=== PATIENT | female | born 1975 | race Caucasian/White ===

== ENCOUNTER 2021-08-28 21:35 | Observation (INO) | payer OTHER ==
[2021-08-28] MEDS ORDERED: HYDROmorphone 1 MG/ML 1 ML SYRINGE IVP STA (22:00)
[2021-08-28] MEDS ORDERED: LORazepam 2 MG/ML INJ IV STA (22:44)
--- NOTE | 2021-08-28 22:47 | ED ---
Fall HPI - General Chief Complaint: Fall Stated Complaint: Fall Time Seen by Provider: 08/28/21 21:45 Source: patient, EMS Mode of arrival: EMS - History of Present Illness Initial Comments: 46 year-old female patient presents to the emergency department for evaluation of right ankle pain and deformity after a fall at home. States she was in the kitchen she went to turn, twisted her ankle, and fell. States she called ambulance because she saw the deformity and could not get up. She denies hitting her head or losing consciousness. Denies any neck or back pain. She did receive Fentanyl 100mg and Zofran 4mg prior to arrival. She states it is not helping. She denies previous injury to the ankle. Denies use of blood thinners. - Related Data Home Medications Medication Instructions Recorded Confirmed Biotin 5 mg PO DAILY 08/28/21 08/28/21 Cyanocobalamin (Vitamin B-12) 5,000 mcg PO DAILY 08/28/21 08/28/21 [Vitamin B12] Ibuprofen [Motrin Ib] 600 mg PO Q8H PRN 08/28/21 08/28/21 Multivitamins, Thera [Multivitamin 1 tab PO DAILY 08/28/21 08/28/21 (formulary)] Venlafaxine HCl [Effexor XR] 75 mg PO DAILY 08/28/21 08/28/21 oxyCODONE-APAP 5-325MG [Percocet 1 tab PO DAILY PRN 08/28/21 08/28/21 5-325 mg] Allergies Allergy/AdvReac Type Severity Reaction Status Date / Time No Known Allergies Allergy Verified 08/28/21 22:41 Review of Systems ROS Statement: Those systems with pertinent positive or pertinent negative responses have been documented in the HPI. ROS Other: All systems not noted in ROS Statement are negative. Past Medical History Past Medical History: No Reported History History of Any Multi-Drug Resistant Organisms: None Reported Past Psychological History: Depression Smoking Status: Current some day smoker Past Alcohol Use History: Occasional Past Drug Use History: Marijuana General Exam General appearance: alert, in no apparent distress, other (This is a well- developed, well-nourished adult female in distress related to pain.) ENT exam: Present: normal exam, normal oropharynx, mucous membranes moist Neck exam: Present: normal inspection, full ROM, other (Nontender, no step-off, no deformity to firm midline palpation of the posterior cervical spine. Full range of motion without pain or limitation.). Absent: tenderness, meningismus, lymphadenopathy Respiratory exam: Present: normal lung sounds bilaterally. Absent: respiratory distress, wheezes, rales, rhonchi, stridor Cardiovascular Exam: Present: normal rhythm, tachycardia, normal heart sounds. Absent: systolic murmur, diastolic murmur, rubs, gallop, clicks GI/Abdominal exam: Present: soft, normal bowel sounds. Absent: distended, tenderness, guarding, rebound, rigid Extremities exam: Present: full ROM, tenderness (Proximal tib-fib, right ankle, right foot), normal capillary refill, other (There is ankle deformity noted on the right. Proximal tib-fib tenderness. Soft tissue swelling noted. Skin is otherwise pink, warm, dry. Cap refill less than 3 seconds. Pedal and posttibial pulses are). Absent: normal inspection, pedal edema, joint swelling, calf tenderness Neurological exam: Present: alert, oriented X3, CN II-XII intact Psychiatric exam: Present: normal affect, normal mood Skin exam: Present: warm, dry, intact, normal color. Absent: rash Course Vital Signs 08/28/21 08/29/21 08/29/21 21:40 00:05 00:10 Pulse Rate 109 H 115 H 101 H Respiratory 20 22 20 Rate Blood Pressure 123/83 114/74 124/55 O2 Sat by Pulse 99 97 95 Oximetry 08/29/21 08/29/21 08/29/21 00:13 00:17 00:30 Pulse Rate 101 H 114 H 101 H Respiratory 18 20 20 Rate Blood Pressure 110/62 110/62 110/84 O2 Sat by Pulse 98 97 96 Oximetry 08/29/21 08/29/21 00:45 01:00 Pulse Rate 102 H 96 Respiratory 20 20 Rate Blood Pressure 107/84 114/78 O2 Sat by Pulse 96 96 Oximetry Procedures - Orthopedic Joint Reduction Joint #1 Consent Obtained: verbal consent Side: right Analgesia: procedural sedation Technique Used: traction/counter-traction Post-Reduction Neuro Exam: intact Post-Reduction Vascular Exam: intact Post Reduction X-Ray Obtained: Yes Post Reduction X-Ray Results: other (improved alignmen) Splint Applied: Yes Patient Tolerated Procedure: well, no complications Additional Comments: Performed by Dr. Christopher Dawn - Orthopedic Splinting/Casting Injury #1 Side: right Lower Extremity Injury Location: short leg, ankle Lower Extremity Immobilizer: posterior splint, stirrup splint, Tr wrap, synthetic pre-padded splint Medical Decision Making - Medical Decision Making 46-year-old female patient presents to the emergency department today for evaluation of right ankle and foot pain after an injury. Physical examination did reveal soft tissue swelling and deformity of the right ankle. Neurovascular status was intact. X-rays were obtained and shows comminuted fracture of the distal shaft of the fibula. There is bimalleolar fracture. Second metatarsal fracture. Talus was placed. Patient was given procedural sedation and the joint was reduced. Splint was applied. She tolerated the procedure well. Postreduction x-ray did show satisfactory alignment. She'll be admitted to the hospital for surgical procedure tomorrow. She is nothing by mouth. She is agreeable with this plan. My attending is Dr. Dawn. - Lab Data Result diagrams: 08/29/21 01:07 08/29/21 01:07 Lab Results 08/29/21 08/29/21 08/29/21 Range/Units 01:07 01:07 01:07 WBC 10.5 (3.8-10.6) k/uL RBC 4.87 (3.80-5.40) m/uL Hgb 15.1 (11.4-16.0) gm/dL Hct 45.8 (34.0-46.0) % MCV 94.0 (80.0-100.0) fL MCH 31.1 (25.0-35.0) pg MCHC 33.1 (31.0-37.0) g/dL RDW 12.1 (11.5-15.5) % Plt Count 281 (150-450) k/uL MPV 7.8 Neutrophils % 70 % Lymphocytes % 25 % Monocytes % 4 % Eosinophils % 1 % Basophils % 0 % Neutrophils # 7.3 (1.3-7.7) k/uL Lymphocytes # 2.6 (1.0-4.8) k/uL Monocytes # 0.4 (0-1.0) k/uL Eosinophils # 0.1 (0-0.7) k/uL Basophils # 0.0 (0-0.2) k/uL PT 10.0 (9.0-12.0) sec INR 0.9 (<1.2) APTT 25.8 (22.0-30.0) sec Sodium 141 (137-145) mmol/L Potassium 4.4 (3.5-5.1) mmol/L Chloride 106 (98-107) mmol/L Carbon Dioxide 24 (22-30) mmol/L Anion Gap 11 mmol/L BUN 12 (7-17) mg/dL Creatinine 0.71 (0.52-1.04) mg/dL Est GFR (CKD-EPI)AfAm >90 (>60 ml/min/1.73 sqM) Est GFR (CKD-EPI)NonAf >90 (>60 ml/min/1.73 sqM) Glucose 102 H (74-99) mg/dL Calcium 9.2 (8.4-10.2) mg/dL Total Bilirubin 0.3 (0.2-1.3) mg/dL AST 20 (14-36) U/L ALT 13 (4-34) U/L Alkaline Phosphatase 67 (38-126) U/L Total Protein 7.6 (6.3-8.2) g/dL Albumin 4.6 (3.5-5.0) g/dL Coronavirus (PCR) (Not Detectd) 08/29/21 Range/Units 01:07 WBC (3.8-10.6) k/uL RBC (3.80-5.40) m/uL Hgb (11.4-16.0) gm/dL Hct (34.0-46.0) % MCV (80.0-100.0) fL MCH (25.0-35.0) pg MCHC (31.0-37.0) g/dL RDW (11.5-15.5) % Plt Count (150-450) k/uL MPV Neutrophils % % Lymphocytes % % Monocytes % % Eosinophils % % Basophils % % Neutrophils # (1.3-7.7) k/uL Lymphocytes # (1.0-4.8) k/uL Monocytes # (0-1.0) k/uL Eosinophils # (0-0.7) k/uL Basophils # (0-0.2) k/uL PT (9.0-12.0) sec INR (<1.2) APTT (22.0-30.0) sec Sodium (137-145) mmol/L Potassium (3.5-5.1) mmol/L Chloride (98-107) mmol/L Carbon Dioxide (22-30) mmol/L Anion Gap mmol/L BUN (7-17) mg/dL Creatinine (0.52-1.04) mg/dL Est GFR (CKD-EPI)AfAm (>60 ml/min/1.73 sqM) Est GFR (CKD-EPI)NonAf (>60 ml/min/1.73 sqM) Glucose (74-99) mg/dL Calcium (8.4-10.2) mg/dL Total Bilirubin (0.2-1.3) mg/dL AST (14-36) U/L ALT (4-34) U/L Alkaline Phosphatase (38-126) U/L Total Protein (6.3-8.2) g/dL Albumin (3.5-5.0) g/dL Coronavirus (PCR) Not Detected (Not Detectd) - Radiology Data Radiology results: report reviewed, image reviewed 6 views of the right tib-fib are obtained. Report was reviewed in its entirety. Impression by Dr. Mehta shows fractures of the posterior malleolus and the medial malleolus with lateral partial dislocation of the talus. There is displaced oblique fracture through the midshaft of the fibula. 2 views of the right ankle are obtained. Report is reviewed in its entirety. Impression by Dr. Mehta shows multiple fractures as above. There is lateral mild displacement of the talus. Chest x-ray was obtained. Report reviewed in its entirety. Impression by Dr. Mehta shows no active cardiopulmonary disease. Normal heart. 2 views of the right foot are obtained. Report reviewed in its entirety. Impression by Dr. Mehta shows nondisplaced second metatarsal fracture. 2 views of the right ankle are obtained. Report was reviewed in its entirety. Impression by Dr. Mehta shows satisfactory reduction of the fractures. Disposition Clinical Impression: Bimalleolar fracture of right ankle, Right fibular fracture, Fracture of second metatarsal bone of right foot Disposition: ADMITTED IP TO THIS [facility] Condition: Serious Decision to Admit Reason: Admit from EC Decision Date: 08/29/21 Decision Time: 00:19
--- NOTE | 2021-08-28 22:47 | XR ---
EXAMINATION TYPE: XR tibia fibula RT DATE OF EXAM: 08/28/2021 COMPARISON: NONE HISTORY: Fall. Pain. TECHNIQUE: 6 views FINDINGS: Knee joint is intact. There is oblique fracture of the mid shaft of the fibula with some an terior angulation. There is transverse fracture through the medial malleolus. There is separation of the distal tibia and fibula. There is lateral displacement of the talus. There is evidence of a chip fracture of the posterior malleolus. IMPRESSION: There is fractures of the posterior malleolus and the medial malleolus with lateral parti al dislocation of the talus. There is displaced oblique fracture through the midshaft of the fibula.
--- NOTE | 2021-08-28 22:48 | XR ---
EXAMINATION TYPE: XR ankle limited RT DATE OF EXAM: 08/28/2021 COMPARISON: NONE HISTORY: Pain TECHNIQUE: 2 views FINDINGS: There is a nondisplaced vertical fracture through the posterior malleolus. There is transve rse fracture through the medial malleolus with separation of the fragments 9 mm. There is 6 mm latera l displacement of the talus. The talus is intact. Calcaneus is intact. There is oblique fracture betw een middle and distal thirds of the right fibula with anterior mild angulation at the fracture site. IMPRESSION: Multiple fractures as above. There is a lateral mild displacement of the talus.
--- NOTE | 2021-08-28 22:49 | XR ---
EXAMINATION TYPE: XR chest 1V DATE OF EXAM: 08/28/2021 COMPARISON: NONE HISTORY: Pain TECHNIQUE: Single view FINDINGS: Heart and mediastinum are normal. Lungs are clear. Diaphragm is normal. Bony thorax is inta ct. There is cervical spine fusion surgery. IMPRESSION: No active cardiopulmonary disease. Normal heart.
--- NOTE | 2021-08-28 22:51 | XR ---
EXAMINATION TYPE: XR foot limited RT DATE OF EXAM: 08/28/2021 COMPARISON: NONE HISTORY: Foot pain TECHNIQUE: 2 views FINDINGS: There is transverse fracture across the base of the second metatarsal. There is no displace ment. The toes are intact. Bones of the midfoot appear intact. There is fracture at the ankle describ ed on the ankle x-ray report. IMPRESSION: Nondisplaced second metatarsal fracture.
[2021-08-28] MEDS ORDERED: PROPOFOL 10 MG/ML 20 ML VIAL IV STA (23:12)
[2021-08-29] MEDS ORDERED: NALOXONE 0.4 MG/ML 1 ML VIAL IV PRN (00:15)
[2021-08-29] MEDS ORDERED: LORazepam 2 MG/ML INJ IV PRN (00:15)
[2021-08-29] MEDS ORDERED: SODIUM CHLORIDE 0.9% 1,000 ML IV SCH (00:15)
--- NOTE | 2021-08-29 00:36 | XR ---
EXAMINATION TYPE: XR ankle limited RT DATE OF EXAM: 08/29/2021 COMPARISON: Today HISTORY: Reduction TECHNIQUE: 2 views FINDINGS: There is fracture of the lateral and posterior malleolus. Fragments are in reasonable anato steve position. Ankle mortise is anatomic. There is oblique fracture of the fibula comminution in fairl y good apposition and alignment of the fragments. IMPRESSION: Satisfactory reduction of the fractures.
[2021-08-29 01:27] LABS: Basophils % (A) 0 %; Eosinophils # (A) 0.1 k/uL (0-0.7); Eosinophils % (A) 1 %; HCT 45.8 % (34.0-46.0); HGB 15.1 gm/dL (11.4-16.0); Lymphocytes # (A) 2.6 k/uL (1.0-4.8); Lymphocytes % (A) 25 %; MCH 31.1 pg (25.0-35.0); MCHC 33.1 g/dL (31.0-37.0); Mean Platelet Volume 7.8; Monocytes # (A) 0.4 k/uL (0-1.0); Monocytes % (A) 4 %; Neutrophils # (A) 7.3 k/uL (1.3-7.7); Neutrophils % (A) 70 %; Platelet Count 281 k/uL (150-450); RBC 4.87 m/uL (3.80-5.40); RDW 12.1 % (11.5-15.5); WBC 10.5 k/uL (3.8-10.6)
[2021-08-29 01:37] LABS: ALT 13 U/L (4-34); AST 20 U/L (14-36); African American GFR (CKD) >90 (>60 ml/min/1.73 sqM); Albumin 4.6 g/dL (3.5-5.0); Alkaline Phosphatase 67 U/L (38-126); Anion Gap 11 mmol/L; Blood Urea Nitrogen 12 mg/dL (7-17); Calcium 9.2 mg/dL (8.4-10.2); Carbon Dioxide 24 mmol/L (22-30); Chloride 106 mmol/L (98-107); Glucose 102 mg/dL (74-99); Non-African American GFR(CKD) >90 (>60 ml/min/1.73 sqM); Potassium 4.4 mmol/L (3.5-5.1); Sodium 141 mmol/L (137-145); Total Bilirubin 0.3 mg/dL (0.2-1.3); Total Protein 7.6 g/dL (6.3-8.2)
[2021-08-29] MEDS ORDERED: ACETAMINOPHEN TAB 500 MG TAB PO STA (01:37)
[2021-08-29 01:38] LABS: INR 0.9 (<1.2); Partial Thromboplastin Time 25.8 sec (22.0-30.0)
[2021-08-29] MEDS: ONDANSETRON 4 MG/2 ML VIAL IVP PRN ×2 (01:48→07:46)
[2021-08-29] MEDS: HYDROmorphone 1 MG/ML 1 ML SYRINGE IVP PRN ×4 (04:05→17:44)
--- NOTE | 2021-08-29 09:34 | CT ---
EXAMINATION TYPE: CT foot RT wo con DATE OF EXAM: 08/29/2021 COMPARISON: Right ankle 08/29/2021, right foot 08/28/2021 HISTORY: Fracture of foot and ankle CT DLP: 109.8 mGycm Automated exposure control for dose reduction was used. Helical imaging obtained through the right fo ot, 3-dimensional reconstructions performed FINDINGS: Please identify complex fracture through the fibula is again noted and is fairly well reduced, some m inimal displacement is noted at the distal aspect of the fracture along the diaphysis, axial image #2 1. Complex fracture noted to the distal tibia extending into the joint, comminuted fragments show esa e minimal displacement at the posterior malleolus, medial malleolus also show some displacement at it s fracture site. Some mild there is some subluxation at the distal tibiofibular joint, widening of th e tibiotalar joint laterally The proximal second metatarsal shows a nondisplaced fracture, sagittal image 32, coronal image #27. N o evident dislocation, alignment maintained. Soft swelling is noted. There is an overlying splint. IMPRESSION: MULTIPLE FRACTURES ABOVE, SOFT TISSUE INJURY DESCRIBED.
--- NOTE | 2021-08-29 10:50 | P.HPOR ---
History of Present Illness H&P Date: 08/29/21 Chief Complaint: Right ankle fracture Patient is a 46-year-old female who presented to [facility] last night for evaluation of a right ankle injury. Apparently the patient was in her kitchen when she twisted around and felt a pop in her ankle and she immediately fell to the ground. She was unable to bear weight after the injury. She was brought to [facility] for further evaluation. There was obvious deformity present in the right ankle at the time of the injury. Upon arrival to the hospital, imaging and lab tests are done. Images demonstrated multiple fractures of the right lower extremity, this to include a comminuted and displaced right fibular shaft fracture, a medial malleolus fracture, syndesmotic disruption with obvious ankle deformity, and a second metatarsal fracture on the right side. I was contacted by the emergency room staff, I was able to review the images and discussed the case with my attending Dr. Vilchis. Patient was admitted under orthopedic care with plan for surgical intervention. Internal medicine was placed on for management. I did discuss the ER staff proper splinting and also reduction of the ankle to help hold better alignment. Alignment and postreduction films were done under sedation in the ER by the emergency room staff. Computed tomography scan was also ordered of the foot/ankle for further evaluation of the fracture pattern. Patient was made nothing by mouth last night. Patient was evaluated today at bedside, she is resting comfortably. She's having significant discomfort in the right ankle. She does take high-dose narcotics from a previous surgery she's been on these for many years, this medication has been restarted. We have adjusted the IV pain medication also. Patient has no other orthopedic complaints at this time. She denies any previous surgery to the right lower extremity. She does have a history of a previous cervical spine surgery that was done in [place] many years ago. currently patient denies any headaches, lightheadedness, chest pain, shortness of breath, nausea vomiting. Review of Systems Constitutional: Reports as per HPI Past Medical History Past Medical History: No Reported History History of Any Multi-Drug Resistant Organisms: None Reported Past Surgical History: Back Surgery Additional Past Surgical History / Comment(s): C2-7 sx Past Anesthesia/Blood Transfusion Reactions: No Reported Reaction Past Psychological History: Anxiety, Depression Additional Psychological History / Comment(s): pt states she has ativan at home but has not needed to take it for a panic attack for a few weeks at least Smoking Status: Current some day smoker Past Alcohol Use History: Occasional Past Drug Use History: Marijuana Additional Drug Use History / Comment(s): pt states she did have a "lick" of weed butter last night 08/28/21 - Past Family History Mother Family Medical History: Diabetes Mellitus Medications and Allergies Home Medications Medication Instructions Recorded Confirmed Type Biotin 5 mg PO DAILY 08/28/21 08/28/21 History Cyanocobalamin (Vitamin B-12) 5,000 mcg PO DAILY 08/28/21 08/28/21 History [Vitamin B12] Ibuprofen [Motrin Ib] 600 mg PO Q8H PRN 08/28/21 08/28/21 History Multivitamins, Thera [Multivitamin 1 tab PO DAILY 08/28/21 08/28/21 History (formulary)] Venlafaxine HCl [Effexor XR] 75 mg PO DAILY 08/28/21 08/28/21 History oxyCODONE-APAP 5-325MG [Percocet 1 tab PO DAILY PRN 08/28/21 08/28/21 History 5-325 mg] Allergies Allergy/AdvReac Type Severity Reaction Status Date / Time No Known Allergies Allergy Verified 08/28/21 22:41 Physical Examination Right lower extremity: Posterior splint with lateral stirrups are present with Tr bandage fixation No significant ecchymosis or soft tissue swelling is appreciated the foot/toes Patient is able wiggle the toes minimal difficulty Sensation to light touch both proximal distal splint are intact. She demonstrates no obvious tenderness of the proximal femur or knee Logroll maneuver of the lower extremity reproduces no groin pain Skin is warm to touch, cap refills less than 3 seconds Results - Labs Labs: Abnormal Lab Results - Last 24 Hours (Table) 08/29/21 Range/Units 01:07 Glucose 102 H (74-99) mg/dL H & H 08/29/21 Range/Units 01:07 Hgb 15.1 (11.4-16.0) gm/dL Hct 45.8 (34.0-46.0) % Coagulation 08/29/21 Range/Units 01:07 INR 0.9 (<1.2) Result Diagrams: 08/29/21 01:07 08/29/21 01:07 - Diagnostic results Ankle/Foot x-ray: report reviewed, image reviewed (X-ray images and report werereviewed of the right lower extremity, please see plan section for descr iption of x-ray findings) Assessment and Plan Assessment: Displaced comminuted right midshaft fibular fracture Displaced right medial malleolus fracture Syndesmotic ligament disruption right lower extremity Nondisplaced right second metatarsal fracture Status post fall from standing Plan: Dr. Vilchis was available today to discuss treatment options with the patient. We would like to proceed with surgical intervention, more specifically an open reduction internal fixation of the right ankle, this including syndesmotic ligament fixation. Risks and benefits of the procedure were discussed the patient, this to include but not exclude blood loss, infection, neurovascular injury, development blood clots, and adequate healing of bone, pain and stiffness, need for subsequent surgery. Patient is in good understanding would like to proceed. Obtain consent Continue nothing by mouth diet Computed tomography scan of the foot/ankle was ordered to further evaluate fracture pattern Pain control, home dose of Percocet has been restarted along with IV Dilaudid as needed. The long discussion regarding pain control patient today and I would likely be difficult due to the long-term effects of her being on narcotics. GI and DVT prophylaxis, we'll plan for discharge on oral anticoagulant versus subcu medication Medical recommendations Nonweightbearing lower extremity at this time Further recommendations to follow Time with Patient: Less than 30
[2021-08-29] MEDS ORDERED: IV FLUID CONTINUATION 800 ML IV ONE (12:45)
[2021-08-29] MEDS ORDERED: DEXAMETHASONE SOD PHOSPHATE 4 MG/ML 1 ML VIAL IVP ONE (13:05)
[2021-08-29] MEDS ORDERED: ONDANSETRON 4 MG/2 ML VIAL IVP ONE (13:05)
[2021-08-29] MEDS ORDERED: MIDAZOLAM 2 MG/2 ML VIAL IVP ONE ×2 (13:09→13:16)
[2021-08-29] MEDS ORDERED: fentaNYL (PF) 50 MCG/ML 2 ML AMP IVP ONE (13:09)
--- NOTE | 2021-08-29 13:12 | P.HPIM ---
History of Present Illness H&P Date: 08/29/21 Chief Complaint: ankle pain 46-year-old female with history of asthma and chronic neck pain status post surgery on chronic high-dose narcotics who presented to [facility] last night for evaluation of a right ankle injury. Apparently the patient was in her kitchen when she twisted around and felt a pop in her ankle and she immediately fell to the ground. She was unable to bear weight after the injury. Had severe pain in the right ankle and lower leg. Currently patient denies any headaches, lightheadedness, chest pain, shortness of breath, nausea vomiting. Prior to the fracture patient was able to walk without difficulties. No exertional shortness of breath or chest pain with walking. Upon arrival lab tests done in the Er were unremarkable. Images demonstrated multiple fractures of the right lower extremity, this to include a comminuted and displaced right fibular shaft fracture, a medial malleolus fracture, syndesmotic disruption with obvious ankle deformity, and a second metatarsal fracture on the right side. Patient was admitted to orthopedic surgery service and medicine was consulted for surgical clearance. Review of Systems Complete review of system performed, pertinent positives per HPI, otherwise negative. Past Medical History Past Medical History: No Reported History History of Any Multi-Drug Resistant Organisms: None Reported Past Surgical History: Back Surgery Additional Past Surgical History / Comment(s): C2-7 sx Past Anesthesia/Blood Transfusion Reactions: No Reported Reaction Past Psychological History: Anxiety, Depression Additional Psychological History / Comment(s): pt states she has ativan at home but has not needed to take it for a panic attack for a few weeks at least Smoking Status: Current some day smoker Past Alcohol Use History: Occasional Past Drug Use History: Marijuana Additional Drug Use History / Comment(s): pt states she did have a "lick" of weed butter last night 08/28/21 - Past Family History Mother Family Medical History: Diabetes Mellitus Medications and Allergies Home Medications Medication Instructions Recorded Confirmed Type Biotin 5 mg PO DAILY 08/28/21 08/28/21 History Cyanocobalamin (Vitamin B-12) 5,000 mcg PO DAILY 08/28/21 08/28/21 History [Vitamin B12] Ibuprofen [Motrin Ib] 600 mg PO Q8H PRN 08/28/21 08/28/21 History Multivitamins, Thera [Multivitamin 1 tab PO DAILY 08/28/21 08/28/21 History (formulary)] Venlafaxine HCl [Effexor XR] 75 mg PO DAILY 08/28/21 08/28/21 History oxyCODONE-APAP 5-325MG [Percocet 1 tab PO DAILY PRN 08/28/21 08/28/21 History 5-325 mg] Allergies Allergy/AdvReac Type Severity Reaction Status Date / Time No Known Allergies Allergy Verified 08/29/21 12:57 Physical Exam Vitals: Vital Signs Temp Pulse Pulse Resp BP BP Pulse Ox 08/29/21 12:47 97.7 F 92 20 103/74 97 08/29/21 08:00 86 16 08/29/21 07:00 98.3 F 86 16 101/69 95 08/29/21 04:00 89 18 95/55 97 08/29/21 01:00 96 20 114/78 96 08/29/21 00:45 102 H 20 107/84 96 08/29/21 00:30 101 H 20 110/84 96 08/29/21 00:17 114 H 20 110/62 97 08/29/21 00:13 101 H 18 110/62 98 08/29/21 00:10 101 H 20 124/55 95 08/29/21 00:05 115 H 22 114/74 97 08/28/21 21:40 109 H 20 123/83 99 Intake and Output 08/28/21 08/29/21 08/29/21 22:59 06:59 14:59 Other: Weight 99.79 kg 99.79 kg Constitutional: No acute distress, conversant, pleasant Eyes:Anicteric sclerae, moist conjunctiva, no lid-lag, PERRLA, ENMT: Oropharynx clear, no erythema, exudates Neck: Supple, FROM, no masses, or JVD, No carotid bruits, No thyromegaly Lungs: Clear to auscultation, Clear to percussion, Normal respiratory effort, no accessory muscle use Cardiovascular: Heart regular in rate and rhythm, No murmurs, gallops, or rubs, No peripheral edema Abdominal: Soft, Nontender, no guarding, rebound or rigidity, Normoactive bowel sounds, No hepatomegaly, No splenomegaly, No palpable mass Skin: Normal temperature, tone, texture, turgor, no induration, No subcutaneous nodules, No rash, lesions, No ulcers Extremities: Right lower extremity dressing applied, No digital cyanosis, No clubbing, Pedal pulses intact and symmetrical, Radial pulses intact and symmetrical, No calf tenderness Psychiatric: Alert and oriented to person, place and time, appropriate affect, intact judgement Neuro: Muscles Strength 5/5 in all 4 extremities, Sensation to light touch grossly present throughout, Cranial nerves II-XII grossly intact, no focal sens ory deficits Results CBC & Chem 7: 08/29/21 01:07 08/29/21 01:07 Labs: Abnormal Lab Results - Last 24 Hours (Table) 08/29/21 Range/Units 01:07 Glucose 102 H (74-99) mg/dL Thrombosis Risk Factor Assmnt - Choose All That Apply Each Factor Represents 1 point: Age 41-60 years, Obesity (BMI >25) Each Risk Factor Represents 2 Points: Major surgery Each Risk Factor Represents 5 Points: Hip, pelvis, or leg fracture (< 1 month) Thrombosis Risk Factor Assessment Total Risk Factor Score: 9 Thrombosis Risk Factor Assessment Level: High Risk Assessment and Plan Plan: Preoperative clearance: Patient must be low risk for the upcoming surgery as she is normally ambulatory prior to this happening. Chest x-ray reviewed, no need for further investigations. Right ankle fracture Per surgical service Chronic Asthma Depression Stable Resume meds DVT prophylaxis Start once okay with surgery Anticipated discharge: 1-2 days Disposition: Likely home
[2021-08-29] MEDS ORDERED: fentaNYL (PF) 50 MCG/ML 5 ML AMP IVP ONE (13:16)
[2021-08-29] MEDS ORDERED: KETAMINE 10 MG/ML 20 ML VIAL ONE (14:27)
[2021-08-29] MEDS ORDERED: ROCURONIUM 10 MG/ML (5 ML VIAL) IV ONE (14:27)
[2021-08-29] MEDS ORDERED: ROPIVACAINE 5 MG/ML 30 ML VIAL ONE (14:27)
[2021-08-29] MEDS ORDERED: HYDROmorphone (PF) 1 MG/ML ONE (14:27)
[2021-08-29] MEDS ORDERED: PROPOFOL 10 MG/ML 20 ML VIAL IV ONE (14:27)
[2021-08-29] MEDS ORDERED: SUCCINYLCHOLINE CHLORIDE 100 MG/5 ML SYR IV ONE (14:27)
[2021-08-29] MEDS ORDERED: GLYCOPYRROLATE 0.2 MG/ML 2 ML VIAL ONE (14:27)
[2021-08-29] MEDS ORDERED: MIDAZOLAM 2 MG/2 ML VIAL ONE (14:27)
[2021-08-29] MEDS ORDERED: LIDOCAINE 1% INJ 10MG/ML (20 ML MDV) ONE (14:27)
[2021-08-29] MEDS ORDERED: fentaNYL (PF) 50 MCG/ML 2 ML AMP ONE (14:27)
[2021-08-29] MEDS ORDERED: NEOSTIGMINE 1 MG/ML 10 ML VIAL ONE (14:27)
[2021-08-29] MEDS ORDERED: ceFAZolin 1,000 MG VIAL IVPB ONE (14:32)
[2021-08-29] MEDS ORDERED: ceFAZolin 1,000 MG in SODIUM CHLORIDE 0.9% 1,000 ML IRRIGATION ONE (15:01)
--- NOTE | 2021-08-29 15:31 | P.ANPRN ---
Procedure Note - Anesthesia - Nerve Block Performed Right Popliteal Single Time Out Performed: Yes (130) Date of Procedure: 08/29/21 Procedure Start Time: 13:09 Procedure Stop Time: 13:13 Location of Patient: PreOp Indication: Acute Post-Operative Pain, Requested by Surgeon Specifically requested for management of pain by : Ulysses Vilchis Sedation Type: Sedate with meaningful contact maintained Preparation: Sterile Prep Position: Left Lateral Catheter: None Needle Types: Pajunk Needle Gauge: 21 Ultrasound used to visualize needle placement: Yes Ultrasound used to observe medication spread: Yes Injectate: 0.5% Ropivacaine (see comment for volume) (20cc) Blood Aspirated: No Pain Paresthesia on Injection Noted: No Resistance on Injection: Normal Image Stored and Saved: Yes Events: Uneventful and Well Tolerated Right Adductor Canal Single Time Out Performed: Yes (130) Date of Procedure: 08/29/21 Procedure Start Time: 13:14 Procedure Stop Time: 13:18 Location of Patient: PreOp Indication: Acute Post-Operative Pain, Requested by Surgeon Specifically requested for management of pain by DrCarlos: Ulysses Vilchis Sedation Type: Sedate with meaningful contact maintained Preparation: Sterile Prep Position: Supine Catheter: None Needle Types: Pajunk Needle Gauge: 21 Ultrasound used to visualize needle placement: Yes Ultrasound used to observe medication spread: Yes Injectate: 0.5% Ropivacaine (see comment for volume) (20cc) Blood Aspirated: No Pain Paresthesia on Injection Noted: No Resistance on Injection: Normal Image Stored and Saved: Yes Events: Uneventful and Well Tolerated
[2021-08-29] MEDS ORDERED: LACTATED RINGERS 1,000 ML IV ONE (15:45)
--- NOTE | 2021-08-29 16:29 | FL ---
EXAMINATION TYPE: FL guidance operating room, XR ankle complete RT DATE OF EXAM: 08/29/2021 CLINICAL HISTORY: Right ankle fracture. TECHNIQUE: Fluoroscopy. Complete intraoperative views right ankle. COMPARISON: Right ankle x-ray earlier today.. FINDINGS: Fluoroscopic guidance was provided during open reduction internal fixation procedure perfo rmed by Dr. Vilchis. A total of 63 seconds of fluoroscopic time was utilized during the procedure and 8 spot images was acquired. Intraoperative images acquired show placement of 2 fixating screws through displaced medial malleolus fracture and lateral fixating plate with 2 radiolucent screws through the distal tibia and fibula di stal to the oblique fibular diaphysis fracture. IMPRESSION: As Above.
[2021-08-29] MEDS ORDERED: HYDROmorphone 0.5 MG/0.5 ML SYRINGE IVP ONE (16:41)
--- NOTE | 2021-08-29 16:47 | P.OP ---
Date of Procedure: 08/29/21 Preoperative Diagnosis: 1. Rt ankle medial malleolar fracture with high fibular fracture and small posterior malleolar fracture. Trimalleolar fracture dislocation 2. Rt ankle Maisonneuve fracture 3. s/p FFS Postoperative Diagnosis: 1. Rt ankle medial malleolar fracture with high fibular fracture and small posterior malleolar fracture. Trimalleolar fracture dislocation 2. Rt ankle Maisonneuve fracture 3. s/p FFS Procedure(s) Performed: 1. Right ankle ORIF medial malleolus 2. Rt ankle syndesmosis reduction with tight rope stabilization 3. Bivalved short leg cast placement 4. Intraoperative interpretation of flouroscopic images <1 hr Implants: 4.0 cannulated screws x2 x2 arthrex tight rope syndesmotic construct. Anesthesia: MAC, regional Surgeon: Ulysses Vilchis Debarker Operator #1: Alex Newton (Was present and necessary due to the complexity ofthe case) Estimated Blood Loss (ml): 50 IV fluids (ml): 500 Urine output (ml): 0 Pathology: none sent Condition: stable Disposition: PACU Indications for Procedure: 46-year-old female presented to the emergency department after a twist and fall injury at home with complaints of right ankle pain. She is found have a right ankle bimalleolar fracture dislocation with Maisonneuve type syndesmotic injury. She was splinted by the emergency department and admitted to the hospital for surgical fixation. We discussed preoperatively all the different options for treatment including nonoperative and operative treatment. Risks and elected for operative treatment and I agree. She has remained neurovascularly intact. Compartments are soft and compressible. She is ready and willing proceed with the procedure Description of Procedure: The patient was seen and examined in the preoperative area. All preoperative protocols were followed. Informed consent was obtained risks and benefits of the procedure were discussed at length. Risks including bleeding infection damage to the surrounding tissue and risk of reoperation were discussed with the patient. Risk of anesthesia up to and including was a discussed with the patient. These are outlined in the risk reviewed. They were willing to accept these risks and all of the risks of surgery. The patient was given a weight- based dose of antibiotics in the form of 2 g Ancef. The patient was seen and evaluated by the anesthesia team who deemed them fit for surgery. The site was marked, the patient was willing to proceed with the procedure. The patient was transferred to the operative suite by the Department of anesth esia. There were then drifted off to sleep by the department of anesthesia and regional block with general anesthetic anesthesia was used. Once adequate anesthesia had been obtained the patient was carefully transferred to the operative bed. All bony prominences were padded accordingly. SCDs were placed on the nonoperative lower extremities. Arms were well padded. Right lower extremity was exposed unable to play trauma patient's right upper thigh well-padded 10:15 placed around this bone foam was placed underneath the right leg and a bump was placed underneath the right hip she was secured to the table and her nonoperative leg taped for security Preoperative briefing was done with the operative team and everyone was ready for the procedure to start. The patients right leg was then prepped and draped in the normal sterile fashion. Timeout was then performed and all parties in agreement with the procedure to be performed. Fluoroscopic images were then taken to biomarker patient to identify the joint line Feistel scar fractures and trajectories. Tourniquet was then inflated after exsanguination to 280 mmHg we started with the medial malleolus skin incision was made longitudinally over the anterior aspect of the medial malleolus and dissection taken down to the periosteum. This was disrupted due to the fracture hematoma was evacuated we then thoroughly irrigated the fracture and the ankle joint with normal sterile saline. We then cleaned the fracture edges using a sharp knife and reduce the fracture using a dental pick once the fracture was reduced 2 pins were placed in the AP and lateral fluoroscopy into the medial male to hold reduction once trajectories were confirmed one pin was then drilled and a screw placed and measured for a 40 partially threaded c annulated screw once this was in good position the second wire was then overdrilled and measured and a screw placed in this area this allowed for fracture reduction and compression. We irrigated the wound and then turned our attention to the syndesmosis a skin incision was made over the lateral aspect of the patient's ankle dissection taken down to the fibula and which was cleared using a hand-held elevator. A 2 hole plate which holds the buttons for the tight rope was then selected and pinned into place under AP lateral fluoroscopy. We then placed the Cuco tongs to reduce the syndesmosis and tightened these in place. We then placed pins parallel to the joint angle anteriorly 30 into the and across the syndesmosis. We then overdrilled these pins and the Arthrex tight rope system was introduced we confirmed that the buttons had flipped medially and that were not grabbing onto any tissue as we did have an incision on that side as well once the buttons were flipped and placed the they were tightened as tight as they could be we then secured these down with knots and the suture was cut the Cuco tongs were then removed showing the reduction was held into good position. AP and lateral final fluoroscopic images demonstrated good fracture reduction as well as reduction of the ankle mortise and syndesmosis. The wounds were then copiously irrigated with normal sterile saline. The periosteum was closed with 0 Vicryl the subcu tissue closed with 2- 0 Vicryl and the skin closed with 2-0 nylon in a running fashion. The wounds were then cleaned sterilely and dressed with Adaptic 4 x 4 ABDs and web roll patient was then placed and a well molded well-padded bivalved short leg cast on the right-hand side. This is overwrapped with an Tr wrap The patient was then transferred back to their hospital bed. There were awakened by department of anesthesia having tolerated the procedure very well with no complications. The patient was then transported to the postoperative care unit in stable condition.
[2021-08-29 18:33] VITALS: BP 127/87; PULSE 98; RESP 16; TEMP 98
[2021-08-30] MEDS ORDERED: VENLAFAXINE HCL ER 75 MG CAP PO SCH (09:00)
--- NOTE | 2021-09-05 06:24 | P.DS ---
<AmanSilvias M - Last Filed: 08/29/21 18:15> Providers Expected date of discharge: 08/29/21 Hospital Course: Date of admission: 08/28/2021 Date of discharge: 08/29/2021 Admission diagnosis: Displaced right midshaft fibular fracture, medial malleolus fracture, syndesmotic ligament disruption Discharge diagnosis: Status post ORIF right ankle fracture Attending physician: Dr. Vilchis Surgical procedures: Open reduction internal fixation right ankle fracture Brief history: Patient is a 46-year-old female who presented to [facility] on 08/28/2021 after falling and injuring her ankle at home. Upon arrival to the hospital, was noted she had obvious deformity the ankle. Imaging test were done which demonstrated a midshaft displaced and comminuted right fibular fracture, and displaced right medial malleolus fracture and obvious syndesmotic ligament disruption. I was able to discuss the case with my attending Dr. Vilchis she was admitted under our care with plan for surgical intervention. The ER staff did provide local sedation and a reduction and splin ting procedure prior to being transferred to the floor., Hospital course: Details of patient's surgery can be found in operative report. Patient tolerated the procedure well and was subsequently transported to orthopedic floor. Patient's orthopeidc and medical care was provided daily. Patient had daily laboratory tests performed for evaluation of overall blood counts. Patient was noted to have a relatively uneventful postoperative course. Patient was very comfortable after the surgery, vitals were monitored. Patient was very adamant in going home. Patient was discharged home on postope rative day 0. Discharge condition/disposition: Patient will be discharged home in stable condition. Discharge medications: Instructions are given on resumption of patient's normal daily medications per primary care recommendation, in addition patient will be prescribed Percocet 5 mg/320 mg, Zofran 4 mg, aspirin 325 mg. Orthopedic discharge instructions: 1. Pain medication as needed 2. Aspirin 325 mg daily for DVT prophylaxis 3. Nonweightbearing right lower extremity 4. Ice and elevate the extremity 5. Do not remove splint, keep covered and dry while showering 6. Please follow up at [facility] 2 weeks Procedures: Open reduction internal fixation right ankle fracture Patient Condition at Discharge: Serious Plan - Discharge Summary Discharge Rx Participant: Yes New Discharge Prescriptions: New Aspirin 325 mg PO DAILY #30 tab oxyCODONE-APAP 5-325MG [Percocet 5-325 mg] 1 - 2 tab PO Q6HR PRN #42 tab PRN Reason: Pain Ondansetron HCl [Zofran] 4 mg PO Q8H PRN #30 tab PRN Reason: Nausea And Vomiting No Action Venlafaxine HCl [Effexor XR] 75 mg PO DAILY Multivitamins, Thera [Multivitamin (formulary)] 1 tab PO DAILY Ibuprofen [Motrin Ib] 600 mg PO Q8H PRN PRN Reason: Pain Or Fever > 100.5 Biotin 5 mg PO DAILY oxyCODONE-APAP 5-325MG [Percocet 5-325 mg] 1 tab PO DAILY PRN PRN Reason: Pain Cyanocobalamin (Vitamin B-12) [Vitamin B12] 5,000 mcg PO DAILY Discharge Medication List Biotin 5 mg PO DAILY 08/28/21 [History] Cyanocobalamin (Vitamin B-12) [Vitamin B12] 5,000 mcg PO DAILY 08/28/21 [History] Ibuprofen [Motrin Ib] 600 mg PO Q8H PRN 08/28/21 [History] Multivitamins, Thera [Multivitamin (formulary)] 1 tab PO DAILY 08/28/21 [History] Venlafaxine HCl [Effexor XR] 75 mg PO DAILY 08/28/21 [History] oxyCODONE-APAP 5-325MG [Percocet 5-325 mg] 1 tab PO DAILY PRN 08/28/21 [History] Aspirin 325 mg PO DAILY #30 tab 08/29/21 [Rx] Ondansetron HCl [Zofran] 4 mg PO Q8H PRN #30 tab 08/29/21 [Rx] oxyCODONE-APAP 5-325MG [Percocet 5-325 mg] 1 - 2 tab PO Q6HR PRN #42 tab 08/29/21 [Rx] Follow up Appointment(s)/Referral(s): Nonstaff,Physician [Primary Care Provider] - 1-2 days (call primary in am to make a follow up appt. office closed at time of discharge) Ulysses Vilchis DO [Doctor of Osteopathic Medicine] - 2 Weeks (call tomorrow to make follow up appt. office closed at time of discharge) Patient Instructions/Handouts: Oxycodone/Acetaminophen (By mouth), Aspirin (By mouth), Ondansetron (By mouth), Surgical Site Infections (DC), External Fixation of an Ankle Fracture (DC) Activity/Diet/Wound Care/Special Instructions: Orthopedic discharge instructions: 1. Pain medication as needed 2. Aspirin 325 mg daily for DVT prophylaxis 3. Nonweightbearing right lower extremity 4. Ice and elevate the extremity 5. Do not remove splint, keep covered and dry while showering 6. Please follow up at [facility] in 2 weeks Discharge Disposition: HOME SELF-CARE <Ulysses Vilchis - Last Filed: 09/05/21 06:24> Providers Date of admission: 08/29/21 01:50 Attending physician: Ulysses Vilchis DO Consults: 08/28/21 23:08 Consult Physician Routine Consulting Provider: Karolyn Andrew Consult Reason/Comments: Surgical clearance Do you want consulting provider notified?: Yes Primary care physician: Physician Nonstaff
== END 2021-08-29 20:10 | disposition home or self-care (01) ==
LOC: EC 21:35 → 6NMEDSUR 08-29 01:50 → 4SSUR 08-29 05:32
PROVIDERS: ADMIT Orthopaedic Surgery; ATTEND Orthopaedic Surgery
DX: S82.853A Displaced trimalleolar fracture of unspecified lower leg, initial encounter for closed fracture (principal); S82.841A Displaced bimalleolar fracture of right lower leg, initial encounter for closed fracture; S82.431A Displaced oblique fracture of shaft of right fibula, initial encounter for closed fracture; S92.324A Nondisplaced fracture of second metatarsal bone, right foot, initial encounter for closed fracture; S93.431A Sprain of tibiofibular ligament of right ankle, initial encounter; S82.861A Displaced Maisonneuve's fracture of right leg, initial encounter for closed fracture; F32.A Depression, unspecified; F41.9 Anxiety disorder, unspecified; F17.200 Nicotine dependence, unspecified, uncomplicated; J45.909 Unspecified asthma, uncomplicated; G89.29 Other chronic pain; M54.2 Cervicalgia; E66.9 Obesity, unspecified; Z68.36 Body mass index [BMI] 36.0-36.9, adult; Z20.822 Contact with and (suspected) exposure to COVID-19; W18.30XA Fall on same level, unspecified, initial encounter; Y92.000 Kitchen of unspecified non-institutional (private) residence as the place of occurrence of the external cause; X50.1XXA Overexertion from prolonged static or awkward postures, initial encounter; Z79.899 Other long term (current) drug therapy; Z71.9 Counseling, unspecified; Z98.1 Arthrodesis status; Z83.3 Family history of diabetes mellitus
CPT/HCPCS: 27810; 29515; 96374; 96375; 99285; 36415; 64447; 81025 ×2; 64445; 76942; 80053; 85025; 85610; 85730; 87635; 73590; 73600 ×2; 73610; 73620; 71045; 73700; 27766; 27829; G0378 ×2; C1713; J2250; J2060; J1100; J2710; J2405; J0690; J2001; J3010; J1170 ×3; J2795; J0330; J2704 ×2